=== PATIENT | female | born 1940 | race Caucasian/White ===

== ENCOUNTER 2024-04-07 13:00 | Outpatient (RCR) | payer MEDICARE, BC, SELFPAY | END 2024-04-12 16:53 | disposition home or self-care (01) | PROVIDERS: PCP Family Medicine; Visit Provider Family Medicine | DX: G60.8 Other hereditary and idiopathic neuropathies (principal); R26.89 Other abnormalities of gait and mobility; Z51.89 Encounter for other specified aftercare | CPT/HCPCS: 97110; 97112; 97161 ==

== ENCOUNTER 2024-08-05 09:42 | Emergency (ER) | payer MEDICARE, BC, SELFPAY ==
--- OUTSIDE RECORDS SUMMARY | 2024-08-05 09:44 | XMS_ITS | Clinical Summary ---
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 For routine questions regarding patient records, call [phone] during business hours, M-F 8:00 AM - 5:00 PM Central Time. Record requests for emergency care only can be directed to [phone] at any time.[facility] Allergies Active Allergy Reactions Criticality Noted Date Comments Cephalexin GI intolerance 08/14/2014 Latex Rash 02/24/2012 verfied Oxycodone Other (see comments) 07/11/2013 Bone pain --- Oxycontin allergy Sulfa (Sulfonamide Antibiotics) Rash 07/04/2013 Tetracycline Rash 07/11/2013 Medications alendronate (FOSAMAX) 70 mg tablet Take 70 mg by mouth daily. 8 Active ascorbic acid, vitamin C, (VITAMIN C) 500 mg tablet Take 1,000 mg by mouth daily. Active aspirin 325 mg tablet Take 325 mg by mouth as needed. 1 Active bilberry, vaccinium myrtillus, (BILBERRY) 500 mg capsule Take by mouth daily. 1 Active cholecalciferol (VITAMIN D3) 1,000 Unit capsule Take by mouth daily. 1 Active cranberry 400 mg capsule Take by mouth daily. 1 Active cycloSPORINE (RESTASIS) 0.05 % ophthalmic emulsion Administer 1 drop into affected eye(s) 2 (two) times a day. 5 Active flaxseed oil oil Take by mouth daily. 1 Active folic acid 400 mcg tablet Take by mouth daily. 1 Active ketoconazole (NIZORAL) 2 % shampoo Apply topically as needed. 3 8 Active Lactobacillus acidoph-pectin 75 million cell -100 mg capsule Take by mouth daily. Active levothyroxine (SYNTHROID) 50 mcg tablet Take 1 tablet by mouth daily. 3 Active lysine 1,000 mg tablet Take by mouth as needed. 1 Active magnesium oxide (MAG-OX) 400 mg (241.3 mg magnesium) tablet Take by mouth daily. 1 Active multivit with minerals/lutein (MULTIVITAMIN 50 PLUS ORAL) Vitamin B Complex 100 1-2 per day 1 Active kf-5-oyq-epa-fi sh oil-vit D3 300-1,000-1,000 mg-mg-unit capsule Take by mouth daily. Active vitamin E 100 unit capsule Take by mouth daily. 1 Active triamcinolone (KENALOG) 0.1 % ointment Apply 1 application topically 2 (two) times a day as needed. Active triamcinolone (KENALOG) 0.1 % ointment Apply sparingly to involved rash twice daily for 2 weeks, stop for 1 week, then resume for another 2 weeks if needed. 60 g 1 1 Active Additional Information Patient not taking.Reported on 06/09/2024 ketoconazole (NIZORAL) 2 % cream Apply to involved areas at corner of mouth once daily as needed for a few weeks then stop 30 g 1 1 Active Additional Information Patient not taking.Reported on 06/09/2024 metroNIDAZOLE (METROCREAM) 0.75 % cream 2 Active mupirocin (BACTROBAN) 2 % ointment APPLY TO BIOPSY SITES DAILY TO TWICE DAILY UNTIL WELL HEALED 2 Active apple cider vinegar 300 mg tablet Take by mouth as needed. 4 Active ELDERBERRY FRUIT ORAL Take by mouth daily. 4 Active garlic tablet Take 1 tablet by mouth. 4 Active Active Problems Problem Noted Date Diagnosed Date Lymphoma 12/17/2010 Overview (10/06/2016): Lymphoma (malignant) NOS, unspecified site, extranodal & solid organ sites Encounters Date Type Department Care Team Description 07/17/2024 Results Follow-Up Department of Dermatology in [place], [place] [address] [place] [phone] Rose Charles M.D. Fungal Culture, Dermal 06/14/2024 11:20 AM FACILITIES CUSTODIAN Office Visit Department of Dermatology in [place], [place] [address] [place] [phone] Rose Charles M.D. Dermatitis (Primary Dx); Keratosis Seborrheic Discharge Disposition: Home or Self Care 06/14/2024 Ancillary Procedure Department of Dermatology 06/09/2024 1:00 PM FACILITIES CUSTODIAN Clinical Communication Virtual Review in [place], [place] [address] [place] [address] Pre-visit Intake from Last 3 Months Social History Tobacco Use Types Packs/Day Years Used Date Smoking Tobacco: Former Smokeless Tobacco: Never Nutrition Answer Date Recorded Nutrition: EVOO Fat Source Unknown 07/19 Nutrition: Servings of Fruits/Vegetables per Day Not on file 07/19/2020 Dental Answer Date Recorded Dental: Regular Dentist Unknown 07/20/19 21 Comments Unknown Sex and Gender Information Value Date Recorded Sex Assigned at Not on file Legal Sex Female 3:08 PM FACILITIES CUSTODIAN Gender Identity Not on file Sexual Orientation Not on file Last Filed Vital Signs Vital Sign Reading Time Taken Comments Blood Pressure 128/66 01/02/2013 2:43 PM CDT Pulse 72 01/02/2013 2:43 PM CDT Temperature - - Respiratory Rate 12 11/26/2012 5:25 PM CDT Oxygen Saturation - - Inhaled Oxygen Concentration - - Weight 56.1 kg (123 lb 10.9 oz) 01/02/2013 2:43 PM CDT Height 162.8 cm (5' 4.08) 01/02/2013 2:43 PM CD T Body Mass Index 21.18 01/02/2013 2:43 PM CDT Plan of Treatment Health Maintenance Due Date Last Done Comments COVID-19 Vaccine (#1) 1945 Pneumococcal vaccine (50+ years) (1 of 2 - PCV) 1958 Zoster Vaccines (1 of 2) 1958 RSV vaccine - (32-36 weeks) or 60+ years (1 - 1-dose 75+ series) 2014 Thyroid Stimulating Hormone (TSH) test for thyroid function 11/21/2023 11/20/2022, 07/23/2022, 02/06/2022, Additional history exists Influenza Vaccine (#1) 2024 Depression Screening (Annual PHQ-2) 05/17/2024 Fall Risk Screen (Annual) 05/17/2024 DTaP,Tdap,and Td Vaccines (2 - Td or Tdap) 09/20/2028 09/20/2018 HPV Vaccines Aged Out No longer eligi ble based on patient's age to complete this topic IPV Vaccines Aged Out No longer eligi ble based on patient's age to complete this topic Procedures Procedure Name Priority Date/Time Associated Diagnosis Comments FUNGAL CULTURE, DERMAL Routine 06/14/2024 11:31 AM FACILITIES CUSTODIAN Dermatitis DERMATOLOGY IMAGE EXAM Routine 06/14/2024 12:00 AM FACILITIES CUSTODIAN THYROID-STIMULATING HORMONE-SENSITIVE (S-TSH) Routine 08/16/2012 12:07 PM CDT from Last 3 Months or Most Recently Relevant to Health Maintenance Results * Fungal Culture, Dermal (06/14/2024 11:31 AM FACILITIES CUSTODIAN) Fungal Culture, Dermal No growth after 30 days of incubation. 07/15/2024 1:01 AM FACILITIES CUSTODIAN DTL Skin Scraping (Buttocks) 06/14/2024 11:31 AM FACILITIES CUSTODIAN Rose Charles M.D. LAB MICROBIOLOGY - GENERAL O RDERABLES Final Result [facility] [address] [place] [address], [place] DTL [facility] [address] [place] [address] * Buttocks 527a-Dermatology Image Exam (06/14/2024 12:00 AM FACILITIES CUSTODIAN) Narrative IIMS - 06/14/2024 2:28 PM FACILITIES CUSTODIAN This order has been created and auto-finalized to support the import of images acquired without order. The clinical documentation to support these images can be found on the encounter that produced images. us Provider Not In System IMG NON RAD IMAGING PROCE DURES Final Result Performing Organization Address City/[facility]/ZIP Co de Phone Number IIAL NA * Thyroid-Stimulating Hormone-Sensitive (s-TSH) (08/16/2012 12:07 PM CDT) TSH (Thyrotropin) 1.67 0.30 - 5.00 MATT DIOP Blood 08/16/2012 12:0 7 PM CDT us Willi Amaya M.D. LAB BLOOD ADD-ON Final Resu lt Performing Organization Address City/[facility]/ZIP Co de Phone Number MATT DIOP [address] [place] [address] from Last 3 Months or Most Recently Relevant to Health Maintenance Insurance MEDIC[place] [facility] [address]
--- OUTSIDE RECORDS SUMMARY | 2024-08-05 09:45 | XMS_ITS | Clinical Summary ---
Author Organization [facility] Address [facility] [place] [address] Care Team Providers Care Tire Installer Name Role Phone Raissa Mcclain MD Primary Care Provider Allergies Active Allergy Reactions Criticality Noted Date Comments Cephalexin GI Upset 08/14/2014 Latex Rash 07/04/2013 Oxycodone Intolerance-Can't Take 07/11/2013 Sulfa (Sulfonamide Antibiotics) Rash 07/04/2013 Tetracycline Rash 07/11/2013 Medications Cholecalciferol, Vitamin D3, (VITAMIN D-3) 2,000 unit tablet Take 2,000 Units by mouth once daily. Active VITAMIN B COMPLEX & VIT C NO.3 (B COMPLEX PLUS VITAMIN C ORAL) Take 1 Tab by mouth once daily. Active vitamin E 400 unit tablet Take 400 Units by mouth 2 times daily with meals. Active LACTOBACILLUS ACIDOPHILUS (ACIDOPHILUS ORAL) Take 3 Tabs by mouth once daily. Active ascorbic acid (VITAMIN C) 500 mg tablet Take 1,000 mg by mouth once daily. Pt will take 3-4 tablets a day Active QL-8-BRF-EPA-Fish Oil-Vit D3 300-1,000-1,000 mg-mg-unit cap Take 2-3 Tabs by mouth once daily. Active cycloSPORINE (RESTASIS) 0.05 % ophthalmic emulsion Place 1 Drop into both eyes every 12 hours. 0 5 Active aspirin enteric coated (ECOTRIN) 325 mg tablet Take 1 tablet by mouth once daily with a meal. 0 5 Active triamcinolone (ARISTOCORT) 0.1 % ointment Apply topically to affected area(s) 2 times daily if needed for Other (Specify). 0 9 Active Cranberry 400 mg capsule Daily Active byymbeo-tkco-tvaf u-gjvw-lcfjoz 100 mg-150 mg- 50 mg-150 mg cap Daily Active magnesium oxide (MAG-OX 400) 400 mg tablet Daily Active zinc sulfate 50 mg zinc (220 mg) capsule Daily Active vitamin K2 40 mcg tab Take by mouth. Unsure of dose 0 1 Active triamcinolone 0.1% TOPICAL (KENALOG) 0.1 % lotionIndications :Dermatitis Apply topically to affected area(s) 3 times daily. 60 mL 2 Active Vitamin A 8,000 unit capsule Daily Active WalkerIndications :Dizziness Walker with front wheels for home use. 1 Each 3 Active alendronate (FOSAMAX) 70 mg tabletIndications :Osteoporosis, unspecified osteoporosis type, unspecified pathological fracture presence Take 1 Tablet (70 mg) by mouth once a week in the morning. Take on empty stomach with full glass of water. Do not lie down for 1 hr. 12 Tablet 3 4 Active elderberry fruit 350 mg cap Take by mouth. 4 Active Garlic tablet Take 1 Tablet by mouth. 4 Active Apple Cider Vinegar 300 mg tablet Take by mouth. 4 Active Lysine 1,000 mg tablet Take by mouth. 4 Active levothyroxine (SYNTHROID) 50 mcg tabletIndications :Hypothyroidism, unspecified type Take 1 Tablet (50 mcg) by mouth once daily. 90 Tablet 2 4 Active hydrocortisone 2.5 % ointmentIndicatio ns:Lichen simplex chronicus Apply thin layer to affected area on buttock twice daily as needed. Alternate 2 weeks on, 2 weeks off until clear. Restart as needed. Safe to use on face/neck/ears /underarms/debra in. 28 g 3 5 Active tacrolimus (Protopic) 0.1 % ointmentIndicatio ns:Lichen simplex chronicus Apply to affected area on buttock twice daily. Alternate 2 weeks on, 2 weeks off. 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 Does not appear was done. Discussed 2016 and recommend repeat Osteoporosis 01/10/2015 Overview (02/08/2020): Fosamax started 12/2014 Dexa 09/2016 with some improvement, continue fosamax, recheck dexa 2-3 yrs 01/2020 dexa improving further, continue fosamax for total 10 years Lymphoma in remission 10/18/2014 Overview (10/18/2014): Is to see oncology annually (around September) with CBC and CMP Pseudophakia, both eyes 09/14/2013 Hypothyroidism 07/11/2013 Lymphoma 07/11/2013 Encounters Date Type Department Care Team Description 07/31/2024 10:50 AM CDT Office Visit [facility] [address] [address] Nancy Davis MD Derm Problem 07/31/2024 Travel 06/08/2024 10:45 AM PERINATAL TECH Office Visit [facility] [address] [address] Nancy Davis MD Derm Problem 06/08/2024 Travel from Last 3 Months Immunizations Immunization Administration Dates Next Due Tdap 09/20/2018 Family History Relation Name Status Comments Father Mother Social History Tobacco Use Types Packs/Day Years Used Date Smoking Tobacco: Former Cigarettes 1 968 - 1968 Smokeless Tobacco: Never Tobacco Cessation:Counseling Given: Yes Comments:smoked for only a brief period over 50 years ago and does not remember how much she smoked. noted 10/04/2018 Alcohol Use Standard Drinks/Week Comments Yes 0 (1 standard drink = 0.6 oz pur e alcohol) 1 drink once weekly PHQ-2 Answer Date Recorded PHQ-2 TOTAL SCORE 0 02/17/2024 Social Connections Answer Date Recorded Do you often feel lonely or isolated from those around you? 0 03/20/2024 Financial Resource Strain Answer Date R ecorded Difficulty of Paying Living Expenses 3 02/17/2024 Difficulty of Paying Living Expenses Not on file 02/17/2024 Food Insecurity Answer Date Recorded Do you worry your food will run out before you are able to buy more? 1 03/20/2024 Transportation Needs Answer Date Record ed Does lack of transportation keep you from medica l appointments? 2 03/20/2024 Does lack of transportation keep you from work, meetings or getting things that you need? 2 03/20/2024 Housing Stability Answer Date Recorded What is your housing situation today? 1 03/20/2024 Utilities Answer Date Recorded Do you have trouble paying f or utilities (for example, heat, electricity, water, phone)? 1 03/20/2024 Comments No Sex and Gender Information Value Date Recorded Sex Assigned at Not on file Legal Sex Female 12:13 PM CDT Gender Identity Not on file Sexual Orientation Not on file Obstetrics History Para Term AB IAB SAB Ectopic Multiple Livin g Live Births 7 1 1 1 Date Outcome GA Total Labor Labor/2nd/3rd Weight Sex Type Anes PTL Kelly A1 A5 Name Clin Term Last Filed Vital Signs Vital Sign Reading Time Taken Comments Blood Pressure 120/82 03/31/2024 10:50 AM PERINATAL TECH Pulse 75 03/31/2024 10:50 AM PERINATAL TECH Temperature 36.9 C (98.4 F) 10/26/2018 11:16 AM CDT Respiratory Rate 16 02/25/2022 10:20 AM CDT Oxygen Saturation 98% 03/31/2024 10:50 AM PERINATAL TECH Inhaled Oxygen Concentration - - Weight 55.3 kg (122 lb) 03/31/2024 9:38 AM PERINATAL TECH Height 162.5 cm (5' 3.98) 02/17/2024 8:43 AM CD T Body Mass Index 20.96 02/17/2024 8:43 AM CDT Plan of Treatment Upcoming Encounters Date Type Department Care Team (Late st Contact Info) Description 09/28/2024 11:30 AM CDT Office Visit [facility] [address] [place] [address] Nancy Davis MD [address] [place] [address] Health Maintenance Due Date Last Done Comments COVID-19 vaccine series (#1) 1945 Pneumococcal series for age 50+ (1 of 2 - PCV) 1958 Zoster (shingles) series for age 50+ (1 of 2) 1958 RSV vaccine for adults or (1 - 1-dose 75+ series) 2014 Influenza Vaccine (#1) 2024 BMI (ht and wt on same day) for age 18+ 02/16/2025 02/17/2024, 11/20/2022, 07/23/2022, Additional history exists Depression screening for age 12+ 02/16/2025 02/17/2024, 02/17/2024, 11/20/2022, Additional history exists Medicare Wellness for age 65+ 02/17/2025, 11/20/2022, 01/29/2020, Additional history exists Tetanus booster 09/20/2028 09/20/2018 Tdap Completed 09/20/2018 DEXA/DXA scan for age 65+ Completed 2022, 02/06/2020, 09/24/2016, Additional history exists Medical Devices Implanted Type Area Advisor Consultant Device Identifier Shelf Expiration Date Model / Serial / Lot Lens Iol 21.5 Tecnis - [id number] Implanted:Qty: 1 on 08/30/2013 by Billy Alvarez MD at [facility] Left: Eye [employer] 04/01/2016 [id number] / [id number] / Lens Iol 20.5 Tecnis - [id number] Implanted:Qty: 1 on 09/13/2013 by Billy Alvarez MD at [facility] Left: Eye [employer] [id number] / [id number] / Procedures Procedure Name Priority Date/Time Associated Diagnosis Comments XR DXA BONE DENSITY 2 SITES AXIAL Routine 11/30/2022 9:23 AM CDT Osteoporosis, unspecified osteoporosis type, unspecified pathological fracture presence from Last 3 Months or Most Recently Relevant to Health Maintenance Results * (ABNORMAL) XR DXA BONE DENSITY 2 SITES AXIAL (11/30/2022 9:23 AM CDT) Anatomical Region Laterality Modality Spine, HIPS, HIPL, HIPR Other Impressions 12/01/2022 2:17 PM CDT Osteoporosis. Consider a drug holiday from bisphosphonates if indicated. Due to the stability of the bone density, continue present medication if indicated. RECOMMENDATIONS: The National Osteoporosis Foundation recommends pharmacologic treatment for patients with T-scores of -2.5 or less, patients with prior history of fragility fractures, or patients with 10-year probability of greater than 3% at hips or greater than 20% of suffering major osteoporotic fractures. Recommend continued optimization of calcium and vitamin D intake through dietary means and/or supplementation and regular exercise. Continue current Alendronate (Fosamax) medication treatment. Follow up in 2 years. Radha Shaffer PA-C [facility] 12/01/2022 Narrative 12/01/2022 2:17 PM CDT For Patients: Results are automatically released to your [employer] account once available, in compliance with federal regulations. This means that you may see your results before your provider has had a chance to review them. Please allow 2-3 business days for your provider to comment on the results. XR DXA Bone Mineral Density (BMD) EXAM LOCATION: [address] [address] PATIENT NAME: Annie Ramos DATE OF : 1940 EXAM DATE: 11/30/2022 REQUESTING PROVIDER: Raissa Mcclain MD GENDER AT : female HEIGHT: 5' 3.7 (11/20/2022) WEIGHT: 123 lb 3.2 oz (11/20/2022) MENOPAUSAL STATUS: Postmenopausal RACE/ETHNICITY: White RISK FACTORS: Smoking (prior), Weight < 127 lbs., and White Race CURRENT MEDICATION FOR BONE LOSS: Alendronate (Fosamax) INDICATION: Follow-up of existing osteoporosis COMPARISON DATE(S): 2019 DXA scans are compared to prior studies for a patient only when the two (or more) studies were performed on the same scanner. It is not possible to compare data generated on one scanner to data from another because there are not standards in DXA equipment. This applies even if the two scanners are made by the same snag grinder. PROCEDURE: Dual-energy x-ray absorptiometry performed with routine technique. Reporting is completed in the form of a T-score. The T-score represents the standard deviation from peak bone mass based on young healthy adult. A Z-score is used for diagnosis in premenopausal women, and for men under the age of 50. FINDINGS: RESULT LUMBAR SPINE L1-L4 BMD: 0.796 g/cm2 T-Score: - 3.2 Z-Score: - 1.0 Change from prior in 2020: Decrease 3.2%. RESULTS FEMUR Left femoral neck BMD: 0.780 g/cm2 T-Score: - 1.9 Z-Score: + 0.7 Change from prior in 2020: Increase 2.4%. Right femoral neck BMD: 0.775 g/cm2 T-Score: - 1.9 Z-Score: + 0.6 Change from prior in 2020: Decrease 1.0%. Left hip BMD: 0.796 g/cm2 T-Score: - 1.7 Z-Score: + 0.7 Change from prior in 2020: Decrease 2.1%. Right hip BMD: 0.841 g/cm2 T-Score: - 1.3 Z-Score: + 1.1 Change from prior in 2020: Increase 0.1%. WHO criteria: Normal: T-score at or above -1 SD Osteopenia: T-score between -1.1 and -2.4 SD Osteoporosis: T-score at or below -2.5 SD Raissa Mcclain MD DEXA Final Resul t from Last 3 Months or Most Recently Relevant to Health Maintenance Insurance MEDICARE PB ONLY MEDICARE PART B HB ONLY MEDICARE PART A HB ONLY [facility]LY [facility] Advance Directives Documents on File Type Date Recorded Patient Supplier Relationship Director Expl anation Healthcare Directive 02/17/2016 4:22 PM BETY GILL,02/11/16 * Full Code (Latest Code Status on File) Date Activated Date Inactivated Comments 09/13/2013 7:58 AM 09/13/2013 1:33 PM * Full Code Date Activated Date Inactivated Comments 08/30/2013 6:02 AM 08/30/2013 11:04 AM Care Teams Tire Installer Relationship Specialty Start Date End Date Raissa Mcclain MD [address] [place] [address] PCP - General Family Practice 12/02/21
--- OUTSIDE RECORDS SUMMARY | 2024-08-05 09:45 | XMS_ITS | Encounter Summary ---
Author Organization [facility] Address [address] [place] [address] Care Team Providers Care Patient Companion Name Role Phone Unavailable Primary Care Provider Unavailabl e Encounter Details Date Type Department Care Team (Latest Contact Info) Description 07/17/2024 Results Follow-Up Department of Dermatology in [place], [place] [address] [place] [address] Rose Charles M.D. [address] [place] [address] Fungal Culture, Dermal Social History Tobacco Use Types Packs/Day Years [...] on file Legal Sex Female 3:08 PM PROOF INSPECTOR Gender Identity Not on file Sexual Orientation Not on file documented as of this encounter Plan of Treatment Not on file documented as of this encounter Visit Diagnoses Not on filedocumented in this encounter
[2024-08-05 09:50] VITALS: BP 110/75; PULSE 65; RESP 18; TEMP 36.4; O2SAT 95; BMI 21.3
--- NOTE | 2024-08-05 10:22 | CRLHL7_ITS ---
For Patients: As a result of the Century Cures Act, medical imaging exams and procedure reports are released immediately into your electronic medical record. You may view this report before your referring provider. If you have questions, please contact your health care provider. INDICATION: Vertigo. TECHNIQUE: CT of the head without contrast. Coronal and sagittal reformats are included. COMPARISON: Brain MRI from 10/14/2018. FINDINGS: No acute intracranial hemorrhage. No mass effect or midline shift. No hydrocephalus or extra-axial collections. Scattered white matter hypoattenuation, typical for chronic microvascular ischemic change. No acute osseous abnormalities. Mastoid air cells and paranasal sinuses are clear. Normal soft tissues. IMPRESSION: IMPRESSION: 1. No acute intracranial abnormalities. Please note that all CT scans at this facility use dose modulation, iterative reconstruction, and/or weight-based dosing when appropriate to reduce radiation dose to as low as reasonably achievable. Dictated by Reji Campuzano MD @ 08/05/2024 11:05:26 AM (Electronically Signed)
--- OUTSIDE RECORDS SUMMARY | 2024-08-05 10:33 | XMS_ITS | Clinical Summary ---
Author Organization [facility] Address [address] [place] [address] Care Team Providers Care Director Of Perioperative Services Name Role Phone Unavailable Primary Care Provider Unavailabl e Source Comments Patient records contain information from all sites at [facility]. For routine questions regarding patient records, call [phone] during business hours, M-F 8:00 AM - 5:00 PM Central Time. Record requests for emergency care only can be directed to [phone] at any time.[facility] Allergies Active Allergy Reactions Criticality Noted [...] Complex 100 1-2 per day 1 Active sp-0-vnk-epa-fi sh oil-vit D3 300-1,000-1,000 mg-mg-unit capsule Take [...] 07/17/2024 Results Follow-Up Department of Dermatology in [place], [place] [address] [place] [phone] Rose Charles M.D. Fungal Culture, Dermal 06/14/2024 11:20 AM LEGAL STENOGRAPHER Office Visit Department of Dermatology in [place], [place] [address] [place] [phone] Rose Charles M.D. 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 07/15/2024 1:01 AM LEGAL STENOGRAPHER DTL Skin Scraping (Buttocks) 06/14/2024 11:31 AM LEGAL STENOGRAPHER Rose Charles M.D. LAB MICROBIOLOGY - GENERAL O RDERABLES Final Result ED [facility] [address] [place] [address], [place] DTL [facility] [address] [place] [address] * Buttocks 527a-Dermatology Image Exam (06/14/2024 12:00 AM LEGAL STENOGRAPHER) Narrative IIMS - 06/14/2024 2:28 PM LEGAL STENOGRAPHER This order has been created and auto-finalized to support the import of images acquired without order. The clinical documentation to support these images can be found on the encounter that produced images. us Provider Not In System IMG NON RAD IMAGING PROCE DURES Final Result Performing Organization Address City/[facility]/ZIP Co de Phone Number IIFL NA * Thyroid-Stimulating Hormone-Sensitive (s-TSH) (08/16/2012 12:07 PM CDT) TSH (Thyrotropin) 1.67 0.30 - 5.00 MATT DIOP Blood 08/16/2012 12:0 7 PM CDT us Willi Amaya M.D. LAB BLOOD ADD-ON Final Resu lt Performing Organization Address City/[facility]/ZIP Co de Phone Number MATT DIOP [address] [place] [address] from Last 3 Months or Most Recently Relevant to Health Maintenance Insurance MEDICARE [facility] [place] [address]
--- OUTSIDE RECORDS SUMMARY | 2024-08-05 10:34 | XMS_ITS | Clinical Summary ---
Author Organization [employer] Address [facility] [place] [address] Care Team Providers Care Sweatband Separator Name Role Phone Raissa Mcclain MD Primary [...] will take 3-4 tablets a day Active WY-2-FMW-EPA-Fish Oil-Vit D3 300-1,000-1,000 mg-mg-unit cap Take 2-3 [...] Active Cranberry 400 mg capsule Daily Active cuxgtbt-lxbx-yznw u-oebs-rsicjd 100 mg-150 mg- 50 mg-150 mg cap [...] Description 07/31/2024 10:50 AM CDT Office Visit [facility] [address] [address] Nancy Davis MD Derm Problem 07/31/2024 Travel 06/08/2024 10:45 AM RAYON TESTER Office Visit [facility] [address] [address] Nancy Davis MD Derm Problem 06/08/2024 Travel [...] Comments Blood Pressure 120/82 03/31/2024 10:50 AM RAYON TESTER Pulse 75 03/31/2024 10:50 AM RAYON TESTER Temperature 36.9 C (98.4 F) 10/26/2018 11:16 AM CDT Respiratory Rate 16 02/25/2022 10:20 AM CDT Oxygen Saturation 98% 03/31/2024 10:50 AM RAYON TESTER Inhaled Oxygen Concentration - - Weight 55.3 kg (122 lb) 03/31/2024 9:38 AM RAYON TESTER Height 162.5 cm (5' 3.98) 02/17/2024 8:43 AM CD T Body Mass Index 20.96 02/17/2024 8:43 AM CDT Plan of Treatment Upcoming Encounters Date Type Department Care Team (Late st Contact Info) Description 09/28/2024 11:30 AM CDT Office Visit [facility] [address] [place] [address] Nancy Davis MD [address] [place] [address] Health Maintenance Due Date Last [...] history exists Medical Devices Implanted Type Area Supervisor Post Wave Device Identifier Shelf Expiration Date Model / Serial / Lot Lens Iol 21.5 Tecnis - [id number] Implanted:Qty: 1 on 08/30/2013 by Billy Alvarez MD at [facility] Left: Eye [employer] 04/01/2016 [id number] / [id number] / Lens Iol 20.5 Tecnis - [id number] Implanted:Qty: 1 on 09/13/2013 by Billy Alvarez MD at [facility] Left: Eye [employer] [id number] / [id number] / Procedures Procedure Name Priority Date/Time Associated [...] up in 2 years. Radha Shaffer PA-C [facility] 12/01/2022 Narrative 12/01/2022 2:17 PM CDT For Patients: Results are automatically released to your [employer] account once available, in compliance with federal regulations. This means that you may see your results before your provider has had a chance to review them. Please allow 2-3 business days for your provider to comment on the results. XR DXA Bone Mineral Density (BMD) EXAM LOCATION: [address] [address] PATIENT NAME: Annie Ramos DATE OF : [...] two scanners are made by the same online merchandiser. 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
--- OUTSIDE RECORDS SUMMARY | 2024-08-05 10:34 | XMS_ITS | Encounter Summary ---
Author Organization [facility] Address [address] [place] [address] Care Team Providers Care Agency Manager Name Role Phone Unavailable Primary Care Provider Unavailabl e Encounter Details Date Type Department Care Team (Latest Contact Info) Description 07/17/2024 Results Follow-Up Department of Dermatology in [place], [place] [address] [place] [address] Rose Charles M.D. 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
[2024-08-05 11:09] LABS: Appearance Urine Clear (Clear); Bilirubin Urine Negative (Negative); Blood Urine Negative (Negative); Color Urine Yellow (Yellow); Glucose Urine Negative (Negative); Ketones Urine Negative (Negative); Leukocyte Esterase Urine Negative (Negative); Nitrite Urine Negative (Negative); Protein Urine Negative (Negative); Specific Gravity Urine 1.015 (1.000-1.030); Urobilinogen Urine 0.2 (0.2-1.0)
--- NOTE | 2024-08-05 11:12 | ED.DIZZY ---
HPI - Dizziness General Chief Complaint: Dizziness/Vertigo Stated Complaint: vertigo, nausea Time Seen by Provider: 08/05/24 10:05 History of Present Illness HPI Narrative: This 84-year-old female comes in reporting symptoms of dizziness which may have some sense of vertigo but also some lightheadedness. She states that she has been having symptoms like this on occasion that last for 5 for 10 minutes. Today she comes in because these symptoms seem to occur for upwards of a couple hours. She did not fall or have any loss of consciousness. She is not on any antihypertensive medicines and denies any symptoms of infection. She does arrive here with normal vital signs. She states that her blood pressures typically elevated at around 140 for systolic value. She has measured her blood pressure a few times when feeling these symptoms and is noted pressure is for with a systolic value of around 110. Related Data Home Medications ?Medication ?Instructions ?Recorded ?Confirmed alendronate 70 mg tablet 70 mg PO 02/17/23 02/16/24 cyclosporine 0.05 % eye drops in a drp ophthalmic (eye) 02/17/23 02/16/24 dropperette (Restasis) levothyroxine 50 mcg tablet 50 mcg PO DAILY 02/17/23 02/16/24 Allergies Allergy/AdvReac Type Severity Reaction Status Date / Time oxycodone (From OxyContin) Allergy Severe Verified 02/16/24 10:44 Tetracyclines Allergy Severe Verified 02/16/24 10:44 cephalexin Allergy Unknown Verified 02/16/24 10:44 latex Allergy Unknown PAIN Verified 08/05/24 10:29 Sulfa (Sulfonamide Allergy Unknown Verified 02/16/24 10:44 Antibiotics) Review of Systems Status of ROS: Reports: 10 or more systems reviewed and unremarkable except as noted in History and below Narrative: Constitutional: No fevers, no weight gain or loss. Eyes: No discharge. No vision changes. HENT: No congestion, no sore throat, no ear pain. Cardiovascular: No chest pain, no palpitations. Respiratory: No shortness of breath, no wheezes, no cough. Gastrointestinal: No abdominal pain, no vomiting, no diarrhea. Genitourinary: No dysuria, no hematuria. Musculoskeletal: Normal range of motion. Skin: No rashes, no pruritis. Neurological: No weakness, sensory change, speech change. Endo/Heme/Allergies: No bruising or bleeding. No polydipsia. Pysch: no suicidality, no anxiety, no insomnia. All other systems reviewed and are negative. [facility] Social History Smoking Status: Never smoker How often do you have a drink containing alcohol: never AUDIT-C Alcohol total score: 0 Non-prescribed substance use: denies use Exam Narrative: Exam Narrative: Constitutional: Well-developed, well-nourished, no acute distress. HEENT: Normocephalic, atraumatic. Neck: Normal range of motion. Nontender. Supple. Heart: Regular. No murmurs. Normal rate. Intact distal pulses. Lungs: Clear to auscultation. No chest discomfort. No wheezes, rhonchi, or rales. Abdomen: Normal bowel sounds. Nontender. No rebound tenderness. Genitalia: Deferred. Back: No midline tenderness. Normal range of motion. Extremities: Normal range of motion. No injury. Skin: Intact. No rash. Warm. No erythema or pallor. Neurologic: No altered sensation. No weakness. Alert and oriented. No facial asymmetry. Tongue is midline. Auwstn-bp-tjnw is normal. No pronator drift. Windows Phone Developer strength is equal bilaterally. Able to raise each leg from the bed. Psychiatric: No suicidality. No anxiety or depression. No insomnia. Nursing notes and vitals signs are reviewed. Const: Vital Signs, click to edit/add: Vital Signs - 24 hr 08/05/24 09:50 08/05/24 12:12 Temperature 97.6 F Pulse Rate [Pulse Oximeter] 65 Respiratory Rate 18 Blood Pressure [Le ft Upper Arm] 110/75 184/91 H Pulse Oximetry 95 Oxygen Delivery Me thod Room Air Course Vital Signs Vital signs: Initial Vital Signs Temperature 97.6 F 08/05/24 09:50 Temperature Source Temporal Artery Scan 08/05/24 09:50 Pulse Rate 65 08/05/24 09:50 Respiratory Rate 18 08/05/24 09:50 Blood Pressure 110/75 08/05/24 09:50 Blood Pressure Mean 86 08/05/24 09:50 Pulse Oximetry 95 08/05/24 09:50 Oxygen Delivery Method Room Air 08/05/24 09:50 Vital Signs Temperature 97.6 F 08/05/24 09:50 Pulse Rate 65 08/05/24 09:50 Respiratory Rate 18 08/05/24 09:50 Blood Pressure 110/75 08/05/24 09:50 Pulse Oximetry 95 08/05/24 09:50 Oxygen Delivery Method Room Air 08/05/24 09:50 Temperature 97.6 F 08/05/24 09:50 Pulse Rate 65 08/05/24 09:50 Respiratory Rate 18 08/05/24 09:50 Blood Pressure 184/91 H 08/05/24 12:12 Pulse Oximetry 95 08/05/24 09:50 Oxygen Delivery Method Room Air 08/05/24 09:50 MDM - Dizziness MDM Narrative Medical decision making narrative: This patient comes in with report of dizziness which I initially seemed to think that it was vertigo symptoms. She did have some nausea but no vomiting. Currently she is not feeling any of those symptoms. As I talk with her some more it seems that it is more likely symptoms of lightheadedness. She is not reporting any chest pain. Her neurologic exam is completely normal. I did obtain a CT scan of her head which returns with no acute findings. Additionally lab results are also reassuring. The patient has been able to get up a couple times and ambulate without difficulty. She does report some peripheral neuropathy so she states that she needs to pay more attention to her balance for that reason. She is okay to be discharged home. I did order Zofran and meclizine but she declined these medicines. I advised her to check her blood pressure and follow-up with recorded values to her primary physician for ongoing management. She should return here if symptoms are recurrent or worsening. Lab Data Labs: Lab Results 08/05/24 08/05/24 08/05/24 Range/Units 11:04 11:46 11:52 WBC 5.17 (4.50-11.00) K/uL RBC 4.42 (4.00-5.20) m/uL Hgb 13.0 (12.0-16.0) gm/dL Hct 39.9 (33.0-51.0) % MCV 90 (80-100) fL MCH 29 (26-34) pg MCHC 33 (32-36) gm/dL RDW Coeff of Ja 13.9 (11.5-15.5) % Plt Count 214 (140-440) K/uL Neut % (Auto) 74.8 H (42.0-72.0) % Lymph % (Auto) 15.7 L (20-44) % Antelope % (Auto) 7.2 (0.0-11.0) % Eos % (Auto) 1.7 (0.0-7.0) % Baso % (Auto) 0.4 (0.0-3.0) % Neut # (Auto) 3.90 (1.7-7.0) K/uL Lymph # (Auto) 0.80 L (0.90-2.90) K/uL Antelope # (Auto) 0.40 (0.00-0.90) K/UL Eos # (Auto) 0.09 (0.00-0.50) K/uL Baso # (Auto) 0.02 (0.00-0.30) K/uL Abs Immat Gran (auto) 0.01 (0.00-0.30) K/uL Imm/Tot Granulo (auto) 0.2 % Sodium 134 L (135-149) mmol/L Potassium 4.5 (3.6-5.1) mmol/L Chloride 100 (96-114) mmol/L Carbon Dioxide 29 (20-32) mmol/L Anion Gap 5 L (7-15) mEq/L BUN 10 (7-30) mg/dL Creatinine 0.6 (0.5-1.5) mg/dL Estimated Creat Clear 35.52 Estimated GFR 88 ml/min Glucose 109 (60-115) mg/dL Calcium 9.5 (8.4-10.6) mg/dL Urine Color Yellow (Yellow) Urine Appearance Clear (Clear) Urine pH 7.0 (5.0-8.5) Ur Specific Pixley 1.015 (1.000-1.030) Urine Protein Negative (Negative) Urine Glucose (UA) Negative (Negative) Urine Ketones Negative (Negative) Urine Blood Negative (Negative) Urine Nitrite Negative (Negative) Urine Bilirubin Negative (Negative) Urine Urobilinogen 0.2 (0.2-1.0) Ur Leukocyte Esterase Negative (Negative) Urine RBC 0-2 (0-2) Urine WBC 0-2 (0-5) Ur Squamous Epith Cells Few (None-Few) Urine Bacteria None (None) POC Troponin I 0.01 (0.01-0.04) ng/ml Imaging Data CT scan - head: Radiologist's impression: No acute intracranial abnormalities. Discharge Plan Discharge Clinical Impression: Episodic lightheadedness Patient Disposition: Home w/ Parent or Adult Condition: Improved Additional Instructions: Continue current plans. Record blood pressures and follow-up with primary physician for ongoing management. Return if worsening. Prescriptions: No Action levothyroxine 50 mcg tablet 50 mcg PO DAILY alendronate 70 mg tablet 70 mg PO cyclosporine [Restasis] 0.05 % dropperette ophthalmic (eye) Patient Comments: [NO ORIGINAL SIG] Follow Up/Referrals: Raissa Mcclain MD [Primary Care Provider] - Stand Alone Forms: Wanna Migrate Info Instructions
[2024-08-05 11:30] LABS: RBC Urine 0-2 (0-2); Squamous Epithelial Cell Urine Few (None-Few); WBC Urine 0-2 (0-5)
[2024-08-05 11:59] LABS: Basophils Absolute Auto 0.02 K/uL (0.00-0.30); Basophils Percent Auto 0.4 % (0.0-3.0); Eosinophils Absolute Auto 0.09 K/uL (0.00-0.50); Eosinophils Percent Auto 1.7 % (0.0-7.0); Hematocrit 39.9 % (33.0-51.0); Immature Granulocytes Abs Auto 0.01 K/uL (0.00-0.30); Immature Granulocytes Pct Auto 0.2 %; Lymphocytes Percent Auto 15.7 % (20-44); Mean Corpuscular HGB Conc 33 gm/dL (32-36); Mean Corpuscular Hemoglobin 29 pg (26-34); Mean Corpuscular Volume 90 fL (80-100); Monocytes Percent Auto 7.2 % (0.0-11.0); Neutrophils Percent Auto 74.8 % (42.0-72.0); Platelet Count* 214 K/uL (140-440); RDW Coefficient of Variation % 13.9 % (11.5-15.5); Red Blood Count 4.42 m/uL (4.00-5.20); White Blood Count* 5.17 K/uL (4.50-11.00)
[2024-08-05 12:01] LABS: Slide Review Reflex No
[2024-08-05 12:06] LABS: Chloride* 100 mmol/L (96-114); Potassium* 4.5 mmol/L (3.6-5.1); Sodium* 134 mmol/L (135-149)
[2024-08-05 12:09] LABS: Blood Urea Nitrogen* 10 mg/dL (7-30); Creatinine* 0.6 mg/dL (0.5-1.5); Est. Creatinine Clearance* 35.52; Estimated Glomerular Filt Rate 88 ml/min
[2024-08-05 12:10] LABS: Anion Gap 5 mEq/L (7-15); Calcium* 9.5 mg/dL (8.4-10.6); Carbon Dioxide* 29 mmol/L (20-32); Glucose* 109 mg/dL (60-115)
[2024-08-05 12:12] VITALS: BP 184/91
[2024-08-05 12:14] LABS: Troponin, Point-of-Care* 0.01 ng/ml (0.01-0.04)
== END 2024-08-05 13:00 | disposition home or self-care (01) ==
PROVIDERS: Emergency Provider Emergency Medicine Emergency Medical Services; PCP Family Medicine
DX: R42 Dizziness and giddiness (principal)
CPT/HCPCS: 36415; 70450; 80048; 81001; 84443; 84484; 85025; 99284